=== PATIENT | female | born 1950 | race Caucasian/White ===

== ENCOUNTER 2016-10-06 02:07 | Emergency (ER) | payer MEDICARE, MEDICAID ==
[~2016-10-06] VITALS: Ht 154.9 cm; Wt 98.0 kg
[~2016-10-06 02:07] MED LIST: BUTA1CAP30 PO; CITA20TA5 PO; ESOM20CA PO; GABA600T2 PO; GEMF600T3 PO; INSU100I28 PO; LOSA50TA6 PO; MELO-184 PO; METO10TA6 PO; PRAV20TA2 PO; PROC10TA PO; ROPI0.5T2 PO; SITA1TAB5 PO; TOPI100T94 PO; VERA120T5 PO
[2016-10-06] MEDS ORDERED: DIPHENHYDRAMINE 50 MG/ML, 1ML ONE (02:48)
[2016-10-06] MEDS ORDERED: KETOROLAC 30 MG/1 ML ONE (02:49)
[2016-10-06] MEDS ORDERED: PROCHLORPERAZINE 5 MG/ML, 2ML ONE (02:49)
[2016-10-06] MEDS ORDERED: DIPHENHYDRAMINE 50 MG/ML, 1ML IVPush ONE (03:00)
[2016-10-06] MEDS ORDERED: PROCHLORPERAZINE 5 MG/ML, 2ML IVPush ONE (03:00)
[2016-10-06] MEDS ORDERED: KETOROLAC 30 MG/1 ML IVPush ONE (03:00)
[2016-10-06] MEDS ORDERED: SODIUM CHLORIDE 0.9% 1,000ML IVBOLUS ONE (03:00)
[2016-10-06] MEDS ORDERED: SODIUM CHLORIDE FLUSH 10ML SYR IVF ONE (03:00)
[2016-10-06 03:01] LABS: ASPARTATE AMINO TRANSFERASE 12 U/L (15-37); BLOOD UREA NITROGEN 17 mg/dL (7-18)
[2016-10-06] MEDS ORDERED: POTASSIUM CHLORIDE 20 MEQ TAB.ER.PRT ONE (04:20)
[2016-10-06] MEDS ORDERED: POTASSIUM CHLORIDE 20 MEQ TAB.ER.PRT PO ONE (04:30)
[2016-10-06 05:39] VITALS: BP 141/88
== END 2016-10-06 05:43 | disposition home or self-care (01) ==
LOC: ED 02:59
DX: G43.009 Migraine without aura, not intractable, without status migrainosus (principal); E87.6 Hypokalemia; E11.9 Type 2 diabetes mellitus without complications; I10 Essential (primary) hypertension; Z88.8 Allergy status to other drugs, medicaments and biological substances; Z88.1 Allergy status to other antibiotic agents; Z88.5 Allergy status to narcotic agent
CPT/HCPCS: 36415; 80053; 85025; 96361; 96374; 96375; 99284; J0780; J1200; J1885; J7030

== ENCOUNTER → 2017-02-15 | Outpatient (CLI) | payer MEDICARE, MEDICAID ==
[~2017-02-15] MED LIST changes: -MELO-184 PO; +MELO15TA24 PO; +TOPI100T8 PO; -TOPI100T94 PO
== END | disposition home or self-care (01) ==
LOC: CARD 08:15
PROVIDERS: ATTEND Registered Nurse
DX: R41.3 Other amnesia (principal)
CPT/HCPCS: 95819

== ENCOUNTER 2018-06-17 16:26 | Emergency (ER) | payer MEDICARE, MEDICAID ==
[~2018-06-17] VITALS: Ht 160 cm; Wt 98.0 kg
[~2018-06-17 16:26] MED LIST changes: -CITA20TA5 PO; +CITA20TA6 PO; -GABA600T2 PO; +GABA600T7 PO; -GEMF600T3 PO; +GEMF600T8 PO; +LOSA50TA14 PO; -LOSA50TA6 PO; -PROC10TA PO; +PROC10TA2 PO
[2018-06-17] MEDS ORDERED: SODIUM CHLORIDE 0.9% 1,000 ML IV ONE (16:45)
--- NOTE | 2018-06-17 16:45 | NUR ---
Assumed care of patient. C/O increased urinary frequency, ABD pain, malaise and generalized weakness. EKG done. Placed on NIBP, pulse ox and surveillance system monitor. Will continue to monitor.
[2018-06-17] MEDS ORDERED: SODIUM CHLORIDE FLUSH 10ML SYR IVF ONE (17:00)
[2018-06-17 17:18] LABS: BASOPHILS # (AUTO) 0.02 x10^3/uL (0-0.1); BASOPHILS % (AUTO) 0 % (0-1); EOSINOPHILS # (AUTO) 0.02 x10^3/uL (0-0.4); EOSINOPHILS % (AUTO) 0 % (1-7); LYMPHOCYTES # (AUTO) 1.47 x10^3/uL (1-3.4); LYMPHOCYTES % (AUTO) 14 % (22-44); MD NO; MEAN CORPUSCULAR HEMOGLOBIN 29.5 pg (27.0-34.8); MEAN CORPUSCULAR HGB CONC 32.8 g/dL (32.4-35.8); MEAN CORPUSCULAR VOLUME 89.8 fL (80-100); MEAN PLATELET VOLUME 9.3 fL (7.4-10.4); MONOCYTES # (AUTO) 0.53 x10^3/uL (0.2-0.8); MONOCYTES % (AUTO) 5 % (2-9); NEUTROPHILS # (AUTO) 8.44 x10^3/uL (1.8-6.8); NEUTROPHILS % (AUTO) 81 % (42-75); PLATELET COUNT 242 x10^3/uL (130-400); RED BLOOD COUNT 4.09 x10^6/uL (3.82-5.3); RED CELL DISTRIBUTION WIDTH 14.1 % (9.6-15.2)
[2018-06-17 17:22] LABS: INTERNATIONAL NORMALIZED RATIO 1.07 (0.93-1.1); PROTHROMBIN TIME 11.2 Seconds (9.6-11.5)
[2018-06-17 17:26] LABS: ALBUMIN 3.8 g/dL (3.4-5.0); ANION GAP 11 mmol/L (5-15); CALCIUM 8.8 mg/dL (8.5-10.1); CHLORIDE 108 mmol/L (98-107)
[2018-06-17 17:29] LABS: CREATININE 1.24 mg/dL (0.55-1.02)
[2018-06-17 17:30] LABS: ALANINE AMINOTRANSFERASE 19 U/L (12-78); ALKALINE PHOSPHATASE 94 U/L (45-117); BILIRUBIN,TOTAL 0.7 mg/dL (0.2-1.0); TOTAL PROTEIN 7.6 g/dL (6.4-8.2)
--- NOTE | 2018-06-17 17:30 | NUR ---
Patient voided via bedpan. Patient cleaned, linens changed, and repositioned for comfort.
[2018-06-17 17:32] LABS: MICROSCOPIC NOT IND
[2018-06-17 18:12] LABS: CULTURE INDICATED? NO
--- NOTE | 2018-06-17 18:22 | NUR ---
Patient to CT.
[2018-06-17] MEDS ORDERED: OMNIPAQUE 350 MG/ML, 100ML BOTTLE ONE (19:02)
[2018-06-17 20:01] VITALS: BP 133/62
--- NOTE | 2018-06-17 20:01 | NUR ---
VSS. Repositioned for comfort. No other needs.
--- NOTE | 2018-06-17 20:57 | NUR ---
Patient/Caregiver given discharge instructions and they have confirmed that they understand the instructions. Patient ambulatory with steady gait.
== END 2018-06-17 20:58 | disposition home or self-care (01) ==
LOC: ED 18:36
DX: R10.33 Periumbilical pain (principal); R00.1 Bradycardia, unspecified; I10 Essential (primary) hypertension; E11.9 Type 2 diabetes mellitus without complications
CPT/HCPCS: 36415; 74177; 80053; 81003; 83605; 83690; 85025; 85610; 87040; 93005; 99284; J7030; Q9967

== ENCOUNTER 2019-05-29 11:40 | Emergency (ER) | payer MEDICARE, MEDICAID ==
[~2019-05-29] VITALS: Ht 154.9 cm; Wt 78.9 kg
[~2019-05-29 11:40] MED LIST changes: +AMOX1TAB64 PO; +APIX5TAB PO; +DOXY100C2 PO; +FERR324T5 PO; +METR500T PO; -ROPI0.5T2 PO; +ROPI0.5T4 PO; +VERA120T13 PO; -VERA120T5 PO
[2019-05-29] MEDS ORDERED: SODIUM CHLORIDE 0.9% 1,000ML IVBOLUS ONE (12:00)
[2019-05-29] MEDS ORDERED: ONDANSETRON 2MG/ML, 2ML IVPush ONE (12:00)
[2019-05-29] MEDS ORDERED: PLEASE ENTER HEIGHT AND WEIGHT MC SCH (12:00)
[2019-05-29] MEDS ORDERED: FAMOTIDINE 20 MG/2 ML IV ONE (12:00)
[2019-05-29] MEDS ORDERED: SODIUM CHLORIDE FLUSH 10ML SYR IVF ONE (12:00)
[2019-05-29] MEDS ORDERED: ONDANSETRON 2MG/ML, 2ML ONE (12:07)
[2019-05-29] MEDS ORDERED: FAMOTIDINE 20 MG/2 ML ONE (12:08)
[2019-05-29 12:13] LABS: BASOPHILS # (AUTO) 0.02 x10^3/uL (0-0.1); BASOPHILS % (AUTO) 0 % (0-1); EOSINOPHILS # (AUTO) 0.26 x10^3/uL (0-0.4); EOSINOPHILS % (AUTO) 5 % (1-7); LYMPHOCYTES # (AUTO) 1.13 x10^3/uL (1-3.4); LYMPHOCYTES % (AUTO) 23 % (22-44); MD NO; MEAN CORPUSCULAR HEMOGLOBIN 28.6 pg (27.0-34.8); MEAN CORPUSCULAR VOLUME 89.4 fL (80-100); MEAN PLATELET VOLUME 8.9 fL (7.4-10.4); MONOCYTES # (AUTO) 0.34 x10^3/uL (0.2-0.8); MONOCYTES % (AUTO) 7 % (2-9); NEUTROPHILS % (AUTO) 65 % (42-75); PLATELET COUNT 163 x10^3/uL (130-400); RED BLOOD COUNT 3.61 x10^6/uL (3.82-5.3); RED CELL DISTRIBUTION WIDTH 16.3 % (9.6-15.2)
[2019-05-29 12:27] LABS: ALANINE AMINOTRANSFERASE 9 U/L (12-78); ALBUMIN 3.6 g/dL (3.4-5.0); ANION GAP 9 mmol/L (5-15); CALCIUM 9.3 mg/dL (8.5-10.1); CHLORIDE 110 mmol/L (98-107)
[2019-05-29 12:29] LABS: ALKALINE PHOSPHATASE 103 U/L (45-117); BILIRUBIN,TOTAL 0.3 mg/dL (0.2-1.0); TOTAL PROTEIN 7.7 g/dL (6.4-8.2)
--- NOTE | 2019-05-29 12:45 | NUR ---
PT BIB BY [facility]. SON CALLED 911 BECAUSE PT WAS SOB, NVD, AND COUGH FOR 2 WEEKS. 2 WEEKS AGO PT WAS TREATED FOR PNEUMONIA. EKG HAS BEEN COMPLETED. FEMALE IS PERFORMING STRAIGHT CATH. BLANKET PROVIDED AND PT MEDICATED PER MAY.
[2019-05-29 13:23] LABS: MICROSCOPIC AUTO
[2019-05-29 13:26] LABS: CULTURE INDICATED? YES
--- NOTE | 2019-05-29 13:51 | NUR ---
PT RESTING IN [facility]. NAD. VSS. UP FOR RECHECK AT THIS TIME
--- NOTE | 2019-05-29 13:52 | NUR ---
PT IN CT AT THIS TIME
--- NOTE | 2019-05-29 14:38 | NUR ---
CT MUST WAIT UNTIL SCAN DONE FOR CODE NEURO PATIENT
--- NOTE | 2019-05-29 14:52 | NUR ---
CODE NEURO CANCELLED; CT NOW JUST WAITING FOR NEW IV
--- NOTE | 2019-05-29 15:04 | NUR ---
PT TO CT AT THIS TIME
[2019-05-29] MEDS ORDERED: OMNIPAQUE 350 MG/ML, 100ML BOTTLE ONE (15:16)
[2019-05-29 15:22] VITALS: BP 170/83
--- NOTE | 2019-05-29 15:22 | NUR ---
PT BACK FROM CT. NAD. VSS. NO NEEDS AT THIS TIME
--- NOTE | 2019-05-29 16:53 | NUR ---
PT CALLED BROTHER FOR RIDE HOME. PT NEEDS 4 LITERS 02 VIA [place] 02/10. PT SAID BROTHER WILL BE ABOUT 20 MINUTES. PT IS IN WHEELCHAIR IN LOBBY CONNECTED TO 02 TANK.
[2019-06-07] MEDS ORDERED: APIX5TAB PO (15:38)
[2019-06-07] MEDS ORDERED: GABA300C10 PO (15:38)
[2019-06-07] MEDS ORDERED: CITA20TA9 PO (15:38)
[2019-06-07] MEDS ORDERED: TOPI100T24 PO (15:38)
[2019-06-07] MEDS ORDERED: PANT40TA5 PO (15:38)
[2019-06-07] MEDS ORDERED: ROPI0.5T4 PO (15:38)
[2019-06-07] MEDS ORDERED: INSU100I13 SQ-INSULIN (15:38)
== END 2019-05-29 16:55 | disposition home or self-care (01) ==
LOC: ED 13:24
DX: R82.81 Pyuria (principal); R10.32 Left lower quadrant pain; R11.2 Nausea with vomiting, unspecified; R94.31 Abnormal electrocardiogram [ECG] [EKG]; I10 Essential (primary) hypertension; E11.9 Type 2 diabetes mellitus without complications
CPT/HCPCS: 36415; 74022; 74177; 80053; 81001; 83605; 85025; 87086; 93005; 96361; 96374; 96375; 99285; J2405; J3490; J7030; Q9967

== ENCOUNTER 2019-07-01 15:21 | Emergency (ER) | payer MEDICARE, MEDICAID ==
[~2019-07-01] VITALS: Ht 154.9 cm; Wt 85.5 kg
[~2019-07-01 15:21] MED LIST changes: +CITA20TA9 PO; +GABA300C10 PO; +INSU100I13 SQ-INSULIN; +PANT40TA5 PO; +TOPI100T24 PO
--- NOTE | 2019-07-01 15:22 | NUR ---
PT TO ROOM 35 PER [facility]. PT IS A/O X4, BUT DUE TO THE MIGRAINE, PT DOES NOT OPEN EYES. PT STATES "THE MIGRAINE STARTED ABOUT 2 WEEKS AGO, AND JUST THE MIGRAINE WAS ENDING, BOOM I STARTED HAVING CHILLS AND SWEATS. ABOUT 1/2 WEEK LATER, I STARTED WITH THIS MASSIVE DIARRHEA. I'M WORRIED BECAUSE IT LOOKED ORANGE. " PT DENIES SOB OR COUGH. PT STATES "I HAVE COPD AND WEAR OXYGEN OF 4L NC ALL THE TIME. I MAY BE CRAZY, BUT NOT SUICIDAL." PT DENIES ETOH AND STREET DRUGS WELL. PT UNDRESSED AND PUT INTO PATIENT GOWN. DUE TO LOW GRADE TEMP, RN COVERS PATIENT WITH A SHEET, BUT DENIES THE REQUEST FOR A WARM BLANKET. PT HOOKED UP TO THE MONITOR AND CALL LIGHT GIVEN WITH INSTRUCTIONS ON HOW TO USE IT.
--- NOTE | 2019-07-01 16:03 | NUR ---
LAB AT BEDSIDE TO DRAW BLOOD. RN HAVING DIFFICULTY GETTING A BLOOD PRESSURE FROM LEFT ARM. CUFF READJUSTED WITHOUT RESULT, SO CUFF MOVED TO RIGHT ARM. AFTER 3 TRIES, PATIENT BLOOD PRESSURE IS VERY HIGH 165/110. PT IS LYING ON LEFT SIDE, SHE STATES THIS IS COMFORTABLE. PT REMAINS STABLE. RN EXPLAINED THE PROCESS OF THE COVID UNIT AND PT VERBALZES UNDERSTANDING OF ALL INSTRUCTIONS.
[2019-07-01 16:05] LABS: BASOPHILS # (AUTO) 0.06 x10^3/uL (0-0.1); BASOPHILS % (AUTO) 1 % (0-1); EOSINOPHILS # (AUTO) 0.16 x10^3/uL (0-0.4); EOSINOPHILS % (AUTO) 3 % (1-7); LYMPHOCYTES # (AUTO) 1.25 x10^3/uL (1-3.4); LYMPHOCYTES % (AUTO) 21 % (22-44); MD NO; MEAN CORPUSCULAR HEMOGLOBIN 28.5 pg (27.0-34.8); MEAN CORPUSCULAR HGB CONC 32.6 g/dL (32.4-35.8); MEAN CORPUSCULAR VOLUME 87.3 fL (80-100); MEAN PLATELET VOLUME 8.9 fL (7.4-10.4); MONOCYTES % (AUTO) 7 % (2-9); NEUTROPHILS # (AUTO) 4.03 x10^3/uL (1.8-6.8); NEUTROPHILS % (AUTO) 68 % (42-75); PLATELET COUNT 163 x10^3/uL (130-400)
[2019-07-01 16:12] LABS: ALANINE AMINOTRANSFERASE 10 U/L (12-78); ALBUMIN 3.5 g/dL (3.4-5.0); ANION GAP 8 mmol/L (5-15); CALCIUM 9.4 mg/dL (8.5-10.1); CHLORIDE 107 mmol/L (98-107); CREATININE 0.93 mg/dL (0.55-1.02)
[2019-07-01 16:14] LABS: ALKALINE PHOSPHATASE 84 U/L (45-117); BILIRUBIN,TOTAL 0.3 mg/dL (0.2-1.0); TOTAL PROTEIN 7.4 g/dL (6.4-8.2)
--- NOTE | 2019-07-01 16:48 | NUR ---
PT UP TO BSC. PT ABLE TO COLLECT URINE, BUT NO STOOL AT THIS TIME. PT GETS UP VERY EASY. PT WIDE AWAKE, STILL C/O [place]. URINE COLLECTED AND SENT TO LAB. PT BACK TO BED, CALL LIGHT AND PHONE IN REACH. PT AGAIN ASKED FOR A HEATED BLANKET, AND AFTER TEMP TAKEN WITH RESULT OF 99.2, RN OFFERED TO GIVE PATIENT ANOTHER SHEET OR A COOL BLANKET. PT OPTED FOR AN ADDITIONAL SHEET. PT NOW LYING ON LEFT SIDE.
[2019-07-01 18:12] VITALS: BP 145/78
--- NOTE | 2019-07-01 18:14 | NUR ---
DISCHARGE INSTRUCTIONS GIVEN TO PATIENT. PT VERBALZES UNDERSTANDING OF ALL INSTRUCTIONS AND FOLLOW UP. PT EDUATED ON PRESCRIPTION MEDICATIONS GIVEN. PT AMBULATED OUT OF ED PER PEDIS WITH STRONG STEADY GAIT.
[2019-07-01 18:17] LABS: CULTURE INDICATED? YES; MICROSCOPIC INDICATED
== END 2019-07-01 18:15 | disposition home or self-care (01) ==
LOC: ED 16:01
DX: K52.9 Noninfective gastroenteritis and colitis, unspecified (principal); R10.9 Unspecified abdominal pain; I10 Essential (primary) hypertension; R50.9 Fever, unspecified; R11.0 Nausea; E11.9 Type 2 diabetes mellitus without complications; G43.909 Migraine, unspecified, not intractable, without status migrainosus
CPT/HCPCS: 36415; 80053; 81001; 83690; 85025; 87086; 99283

== ENCOUNTER 2019-07-02 16:22 | Emergency (ER) | payer MEDICARE, MEDICAID ==
[~2019-07-02] VITALS: Ht 154.9 cm; Wt 90.0 kg
--- NOTE | 2019-07-02 16:35 | NUR ---
PT PLACED ON HEART MONITOR, BP CUFF, PULSE OX. CALL LIGHT WITHIN REACH. AWAITING ERP TO SEE.
[2019-07-02] MEDS ORDERED: SODIUM CHLORIDE 0.9% 1,000ML IVBOLUS ONE (17:30)
[2019-07-02] MEDS ORDERED: SODIUM CHLORIDE FLUSH 10ML SYR IVF ONE (17:30)
[2019-07-02 17:31] LABS: BASOPHILS # (AUTO) 0.07 x10^3/uL (0-0.1); BASOPHILS % (AUTO) 1 % (0-1); EOSINOPHILS # (AUTO) 0.13 x10^3/uL (0-0.4); EOSINOPHILS % (AUTO) 2 % (1-7); LYMPHOCYTES # (AUTO) 1.62 x10^3/uL (1-3.4); LYMPHOCYTES % (AUTO) 24 % (22-44); MD NO; MEAN CORPUSCULAR HEMOGLOBIN 28.7 pg (27.0-34.8); MEAN CORPUSCULAR HGB CONC 32.4 g/dL (32.4-35.8); MEAN CORPUSCULAR VOLUME 88.6 fL (80-100); MEAN PLATELET VOLUME 8.7 fL (7.4-10.4); MONOCYTES # (AUTO) 0.47 x10^3/uL (0.2-0.8); MONOCYTES % (AUTO) 7 % (2-9); NEUTROPHILS # (AUTO) 4.55 x10^3/uL (1.8-6.8); NEUTROPHILS % (AUTO) 66 % (42-75); PLATELET COUNT 172 x10^3/uL (130-400); RED BLOOD COUNT 3.93 x10^6/uL (3.82-5.3); RED CELL DISTRIBUTION WIDTH 15.5 % (9.6-15.2)
--- NOTE | 2019-07-02 17:39 | NUR ---
ATTEMPT TO ESTABLISH IV X 2, BOTH ATTEMPTS VEIN COLLAPSED. LABS DRAWN BY WIND FIELD MANAGER. WILL REQUEST US GUIDED IV. CALL LIGHT WITHIN REACH.
[2019-07-02 17:42] LABS: ALANINE AMINOTRANSFERASE 11 U/L (12-78); ALBUMIN 3.5 g/dL (3.4-5.0); ANION GAP 8 mmol/L (5-15); CHLORIDE 106 mmol/L (98-107)
[2019-07-02 17:44] LABS: ALKALINE PHOSPHATASE 79 U/L (45-117); BILIRUBIN,TOTAL 0.4 mg/dL (0.2-1.0); TOTAL PROTEIN 7.6 g/dL (6.4-8.2)
--- NOTE | 2019-07-02 17:58 | NUR ---
PIV START/US GUIDED. NS BOLUS INFUSING. CALL LIGHT WITHIN REACH, PT SLEEPING INTERMITTENTLY, NAD.
--- NOTE | 2019-07-02 18:10 | NUR ---
REPORT RECEIVED FROM KIP SEVILLA.
--- NOTE | 2019-07-02 18:15 | NUR ---
BS REPORT TO MICHAEL, TRANSFER OF CARE AT THIS TIME.
[2019-07-02] MEDS ORDERED: OMNIPAQUE 350 MG/ML, 100ML BOTTLE ONE (18:28)
--- NOTE | 2019-07-02 18:51 | NUR ---
PT TRANSFERED TO [facility] W/ A STANDBY ASSIST.
--- NOTE | 2019-07-02 19:05 | NUR ---
PT UNABLE TO PROVIDE STOOL SAMPLE.
[2019-07-02 20:38] VITALS: BP 147/39
[2019-07-02] MEDS ORDERED: PROMETHAZINE 25 MG/ML, 1ML IM ONE (21:00)
--- NOTE | 2019-07-02 21:05 | NUR ---
PT WHEELED TO DC DESK W/ OXYGEN. PT WANTS TO WAIT IN LOBBY FOR BROTHER TO PICK HER UP W/ HER O2.
== END 2019-07-02 21:11 | disposition home or self-care (01) ==
LOC: ED 17:39
DX: R19.7 Diarrhea, unspecified (principal); R10.84 Generalized abdominal pain; R11.0 Nausea; I10 Essential (primary) hypertension; E11.9 Type 2 diabetes mellitus without complications; G43.909 Migraine, unspecified, not intractable, without status migrainosus
CPT/HCPCS: 36415; 74177; 80053; 83690; 85025; 96360; 99285; J7030; Q9967

== ENCOUNTER 2019-07-03 12:42 | Emergency (ER) | payer MEDICARE, MEDICAID ==
[~2019-07-03] VITALS: Ht 160 cm; Wt 72.0 kg
[2019-07-03] MEDS ORDERED: ACETAMINOPHEN 500 MG TABLET ONE (13:55)
[2019-07-03] MEDS ORDERED: ONDANSETRON 2MG/ML, 2ML ONE (13:55)
[2019-07-03] MEDS ORDERED: KETOROLAC 30 MG/1 ML ONE ×2 (13:55→13:56)
[2019-07-03] MEDS ORDERED: LOPERAMIDE 2 MG CAPSULE ONE ×2 (13:57→13:59)
[2019-07-03] MEDS ORDERED: MAALOX/HYOSCYAMINE/LIDOCAINE 45 ML BTL ONE (13:58)
[2019-07-03] MEDS ORDERED: SODIUM CHLORIDE FLUSH 10ML SYR IVF ONE (14:00)
[2019-07-03] MEDS ORDERED: ACETAMINOPHEN 500 MG TABLET PO ONE (14:00)
[2019-07-03] MEDS ORDERED: KETOROLAC 30 MG/1 ML IVPush ONE (14:00)
[2019-07-03] MEDS ORDERED: SODIUM CHLORIDE 0.9% 1,000ML IVBOLUS ONE (14:00)
[2019-07-03] MEDS ORDERED: ONDANSETRON 2MG/ML, 2ML IVPush ONE (14:00)
[2019-07-03] MEDS ORDERED: MAALOX/HYOSCYAMINE/LIDOCAINE 45 ML BTL PO ONE (14:00)
[2019-07-03] MEDS ORDERED: LOPERAMIDE 2 MG CAPSULE PO ONE (14:00)
[2019-07-03 14:05] VITALS: BP 141/48
--- NOTE | 2019-07-03 14:06 | NUR ---
REPORT FROM MAXWELL SEVILLA. IVF/MEDS PER MAY. [facility]. CALL TEE.
[2019-07-03 14:07] LABS: BASOPHILS # (AUTO) 0.02 x10^3/uL (0-0.1); BASOPHILS % (AUTO) 0 % (0-1); EOSINOPHILS % (AUTO) 2 % (1-7); LYMPHOCYTES # (AUTO) 0.96 x10^3/uL (1-3.4); LYMPHOCYTES % (AUTO) 17 % (22-44); MD NO; MEAN CORPUSCULAR HEMOGLOBIN 28.5 pg (27.0-34.8); MEAN CORPUSCULAR HGB CONC 32.6 g/dL (32.4-35.8); MEAN CORPUSCULAR VOLUME 87.5 fL (80-100); MEAN PLATELET VOLUME 9.1 fL (7.4-10.4); MONOCYTES # (AUTO) 0.23 x10^3/uL (0.2-0.8); MONOCYTES % (AUTO) 4 % (2-9); NEUTROPHILS # (AUTO) 4.22 x10^3/uL (1.8-6.8); NEUTROPHILS % (AUTO) 76 % (42-75); PLATELET COUNT 150 x10^3/uL (130-400); RED BLOOD COUNT 3.75 x10^6/uL (3.82-5.3); RED CELL DISTRIBUTION WIDTH 15.5 % (9.6-15.2)
[2019-07-03 14:16] LABS: ALBUMIN 3.4 g/dL (3.4-5.0); CALCIUM 8.9 mg/dL (8.5-10.1); CHLORIDE 108 mmol/L (98-107)
[2019-07-03 14:21] LABS: ANION GAP 10 mmol/L (5-15); CREATININE 0.88 mg/dL (0.55-1.02)
[2019-07-03 14:22] LABS: ALANINE AMINOTRANSFERASE 13 U/L (12-78); ALKALINE PHOSPHATASE 82 U/L (45-117); BILIRUBIN,TOTAL 0.4 mg/dL (0.2-1.0)
--- NOTE | 2019-07-03 14:50 | NUR ---
called brother Tad for ride ([phone]). sts will come to get pt. pt had swallowed all pills, GI cocktail, and water w/ no issue. when told she is getting dc home pt gags and sts she wants to stay. pt given water. no vomiting. as
--- NOTE | 2019-07-03 15:10 | NUR ---
oob to bathroom gait steady. awaiting ride. helped to dress. piv removed. as
== END 2019-07-03 15:17 | disposition home or self-care (01) ==
LOC: ED 12:46
DX: K52.9 Noninfective gastroenteritis and colitis, unspecified (principal); R53.1 Weakness; R94.31 Abnormal electrocardiogram [ECG] [EKG]; E11.9 Type 2 diabetes mellitus without complications; G89.29 Other chronic pain; G43.909 Migraine, unspecified, not intractable, without status migrainosus; I10 Essential (primary) hypertension
CPT/HCPCS: 36415; 80053; 85025; 93005; 96361; 96374; 96375; 99284; J1885; J2405; J7030

== ENCOUNTER 2019-07-13 23:40 | Emergency (ER) | payer MEDICAID, MEDICARE ==
[~2019-07-13] VITALS: Ht 154.9 cm; Wt 170.0 kg
[2019-07-14 00:27] LABS: BASOPHILS # (AUTO) 0.02 x10^3/uL (0-0.1); BASOPHILS % (AUTO) 0 % (0-1); EOSINOPHILS # (AUTO) 0.22 x10^3/uL (0-0.4); EOSINOPHILS % (AUTO) 4 % (1-7); LYMPHOCYTES # (AUTO) 1.16 x10^3/uL (1-3.4); LYMPHOCYTES % (AUTO) 24 % (22-44); MD NO; MEAN CORPUSCULAR HEMOGLOBIN 28.5 pg (27.0-34.8); MEAN CORPUSCULAR HGB CONC 32.5 g/dL (32.4-35.8); MEAN CORPUSCULAR VOLUME 87.5 fL (80-100); MEAN PLATELET VOLUME 9.6 fL (7.4-10.4); MONOCYTES # (AUTO) 0.58 x10^3/uL (0.2-0.8); MONOCYTES % (AUTO) 12 % (2-9); NEUTROPHILS # (AUTO) 2.95 x10^3/uL (1.8-6.8); NEUTROPHILS % (AUTO) 60 % (42-75); PLATELET COUNT 135 x10^3/uL (130-400); RED BLOOD COUNT 3.16 x10^6/uL (3.82-5.3); RED CELL DISTRIBUTION WIDTH 14.8 % (9.6-15.2)
[2019-07-14 00:34] LABS: ANION GAP 6 mmol/L (5-15); CHLORIDE 113 mmol/L (98-107)
[2019-07-14 00:40] LABS: ALANINE AMINOTRANSFERASE 9 U/L (12-78); ALKALINE PHOSPHATASE 84 U/L (45-117); BILIRUBIN,TOTAL 0.3 mg/dL (0.2-1.0); CREATININE 1.07 mg/dL (0.55-1.02); TOTAL PROTEIN 6.4 g/dL (6.4-8.2); TROPONIN I < 0.015 ng/mL (0.000-0.045)
[2019-07-14 01:15] VITALS: BP 139/66
--- NOTE | 2019-07-14 01:28 | NUR ---
ERP AT BEDSIDE FOR RE-EVAL. ASSISTED PT TO BS.
== END 2019-07-14 01:50 | disposition home or self-care (01) ==
LOC: ED 07-14 00:56
DX: R55 Syncope and collapse (principal); R42 Dizziness and giddiness; R00.2 Palpitations; R19.7 Diarrhea, unspecified; R07.9 Chest pain, unspecified; R94.31 Abnormal electrocardiogram [ECG] [EKG]; I10 Essential (primary) hypertension; E11.9 Type 2 diabetes mellitus without complications
CPT/HCPCS: 36415; 71045; 80053; 84484; 85025; 93005; 99285

== ENCOUNTER 2019-08-26 12:14 | Emergency (ER) | payer MEDICAID, MEDICARE ==
[~2019-08-26] VITALS: Ht 154.9 cm; Wt 85.0 kg
[~2019-08-26 12:14] MED LIST changes: +ATOR40TA78 PO; +DAPA1TAB3 PO; +DULA1.5P SC; +FURO20TA3 PO; +OMEP20CA20 PO; +ONDA4TAB13 PO; +OXYC-302 PO; +OXYC-432 PO; +TOPI200T6 PO
[2019-08-26 12:24] VITALS: BP 121/58
[2019-08-26] MEDS ORDERED: NEOSPORIN OINT. PKT 1 PACKET ONE (14:44)
== END 2019-08-26 14:55 | disposition home or self-care (01) ==
LOC: ED 13:56
DX: S80.12XA Contusion of left lower leg, initial encounter (principal); I10 Essential (primary) hypertension; E11.9 Type 2 diabetes mellitus without complications; I48.91 Unspecified atrial fibrillation; X58.XXXA Exposure to other specified factors, initial encounter; Y93.89 Activity, other specified; Y92.098 Other place in other non-institutional residence as the place of occurrence of the external cause; Y99.8 Other external cause status
CPT/HCPCS: 99283

== ENCOUNTER 2019-10-02 11:55 | Emergency (ER) | payer MEDICAID, MEDICARE ==
[~2019-10-02] VITALS: Ht 154.9 cm; Wt 90.0 kg
[2019-10-02 12:10] VITALS: BP_DIAS 64
[2019-10-02] MEDS ORDERED: SODIUM CHLORIDE FLUSH 10ML SYR IVF ONE (12:30)
[2019-10-02] MEDS ORDERED: ONDANSETRON 2MG/ML, 2ML IVPush ONE (12:30)
[2019-10-02] MEDS ORDERED: SODIUM CHLORIDE 0.9% 1,000ML IVBOLUS ONE (12:30)
[2019-10-02 12:48] LABS: BASOPHILS # (AUTO) 0.07 x10^3/uL (0-0.1); BASOPHILS % (AUTO) 1 % (0-1); EOSINOPHILS # (AUTO) 0.12 x10^3/uL (0-0.4); EOSINOPHILS % (AUTO) 2 % (1-7); LYMPHOCYTES # (AUTO) 1.69 x10^3/uL (1-3.4); LYMPHOCYTES % (AUTO) 21 % (22-44); MD NO; MEAN CORPUSCULAR HEMOGLOBIN 28.6 pg (27.0-34.8); MEAN CORPUSCULAR HGB CONC 32.4 g/dL (32.4-35.8); MEAN CORPUSCULAR VOLUME 88.2 fL (80-100); MEAN PLATELET VOLUME 8.2 fL (7.4-10.4); MONOCYTES # (AUTO) 0.39 x10^3/uL (0.2-0.8); MONOCYTES % (AUTO) 5 % (2-9); NEUTROPHILS # (AUTO) 5.66 x10^3/uL (1.8-6.8); NEUTROPHILS % (AUTO) 71 % (42-75); PLATELET COUNT 210 x10^3/uL (130-400)
[2019-10-02 13:00] LABS: ALANINE AMINOTRANSFERASE 13 U/L (12-78); ANION GAP 10 mmol/L (5-15); CALCIUM 9.8 mg/dL (8.5-10.1); CHLORIDE 108 mmol/L (98-107); CREATININE 1.24 mg/dL (0.55-1.02)
[2019-10-02] MEDS ORDERED: MAALOX/HYOSCYAMINE/LIDOCAINE 45 ML BTL PO ONE (13:00)
[2019-10-02 13:05] LABS: ALKALINE PHOSPHATASE 100 U/L (45-117); BILIRUBIN,TOTAL 0.5 mg/dL (0.2-1.0); TOTAL PROTEIN 8.4 g/dL (6.4-8.2); TROPONIN I < 0.015 ng/mL (0.000-0.045)
[2019-10-02] MEDS ORDERED: MAALOX/HYOSCYAMINE/LIDOCAINE 45 ML BTL ONE (13:18)
[2019-10-02] MEDS ORDERED: ONDANSETRON 2MG/ML, 2ML ONE (13:18)
[2019-10-02 13:20] VITALS: BP_SYST 133
--- NOTE | 2019-10-02 13:51 | NUR ---
REPORT FROM ROEL CURIEL. PT CARE RESPONSIBILTIES ASSUMED.
[2019-10-02 14:31] LABS: MICROSCOPIC NOT IND
== END 2019-10-02 16:00 | disposition home or self-care (01) ==
LOC: ED 14:04
DX: R10.84 Generalized abdominal pain (principal); R10.13 Epigastric pain; R11.2 Nausea with vomiting, unspecified; R19.7 Diarrhea, unspecified; E11.9 Type 2 diabetes mellitus without complications; I48.91 Unspecified atrial fibrillation; G43.909 Migraine, unspecified, not intractable, without status migrainosus; I10 Essential (primary) hypertension
CPT/HCPCS: 36415; 74021; 80053; 81003; 83690; 84484; 85025; 93005; 96361; 96374; 99285; J2405; J7030

== ENCOUNTER 2019-10-15 11:11 | Emergency (ER) | payer MEDICARE ==
[~2019-10-15] VITALS: Ht 154.9 cm; Wt 103.0 kg
--- NOTE | 2019-10-15 11:20 | NUR ---
BIB [facility], PT REPORTS CHOKING ON SUSHI AT HOME, SHE FEELS THOUGH THERE IS STILL A PIECE IN HER [place], PT WITH NO RESP DISTRESS NOTED, NO STRIDOR, SATING 100% ON BASELINE 4L. PT TO CONT PULSE OX, BP MONITORING, CALL LIGHT IN REACH. PT INSTRUCTED TO CALL IF CHANGES IN WORK OF BREATHING. AWAITING ALECIA MARTIN
--- NOTE | 2019-10-15 11:54 | NUR ---
PT TO IMAGING AT THIS TIME
[2019-10-15 12:33] VITALS: BP 106/47
--- NOTE | 2019-10-15 12:50 | NUR ---
PT CALLED SON FOR RIDE HOME
== END 2019-10-15 13:09 | disposition home or self-care (01) ==
LOC: ED 12:50
DX: R13.14 Dysphagia, pharyngoesophageal phase (principal); E11.9 Type 2 diabetes mellitus without complications; I48.91 Unspecified atrial fibrillation; I10 Essential (primary) hypertension; G43.909 Migraine, unspecified, not intractable, without status migrainosus
CPT/HCPCS: 74220; 99283

== ENCOUNTER 2019-11-07 21:35 | Inpatient (IN) | payer MEDICARE, MEDICAID ==
[~2019-11-07] VITALS: Ht 154.9 cm; Wt 76.9 kg
--- NOTE | 2019-11-07 22:45 | NUR ---
JUANA [place]: [phone]
--- NOTE | 2019-11-07 22:45 | NUR ---
THIS IS A 68 YO FEMALE BIB [facility] FROM HOME WITH COMPLAINTS OF BODY ACHES AND ONSET OF N/V LAST NIGHT, BS 88 EN ROUTE, ON O2 4L AT BASELINE. PER PATIENT SYMPTOMS BECAME MUCH WORSE THIS EVENING WHILE WALKING FROM "[place]", BECAME DIZZY AND FELT LIKE SHE WAS GOING TO PASS OUT. PT DENIES CHEST PAIN, DENIES SOB BUT PATIENT IS TACHYPNIC AT 26 BREATHS A MINUTE WITH AUDIBLE BREATH SOUNDS. LUNG SOUNDS ARE DIMINISHED THROUGHOUT. C/O BURNING PAIN IN EPIGASTRIC AREA. ALL MONITORING IN PLACE, PATIENT IS BRADYCARDIC WITH ARRYTHMIA, ALL OTHER VSS, CALL LIGHT IN REACH
[2019-11-07] MEDS ORDERED: methylPREDNISolone SOD SUCC 125 MG/2 ML ONE (23:28)
[2019-11-07] MEDS ORDERED: SODIUM CHLORIDE FLUSH 10ML SYR IVF ONE (23:30)
[2019-11-07] MEDS ORDERED: methylPREDNISolone SOD SUCC 125 MG/2 ML IV ONE (23:30)
[2019-11-08] VITALS (8 sets, daily range): BP systolic 112–151; BP diastolic 60–83
--- NOTE | 2019-11-08 | NUR ---
PIV PLACED, MEDICATED PER EMAR.
[2019-11-08 00:19] LABS: BASOPHILS # (AUTO) 0.03 x10^3/uL (0-0.1); BASOPHILS % (AUTO) 0 % (0-1); EOSINOPHILS # (AUTO) 0.26 x10^3/uL (0-0.4); EOSINOPHILS % (AUTO) 4 % (1-7); LYMPHOCYTES # (AUTO) 2.01 x10^3/uL (1-3.4); LYMPHOCYTES % (AUTO) 28 % (22-44); MD NO; MEAN CORPUSCULAR HEMOGLOBIN 29.7 pg (27.0-34.8); MEAN CORPUSCULAR HGB CONC 32.6 g/dL (32.4-35.8); MEAN CORPUSCULAR VOLUME 91.2 fL (80-100); MEAN PLATELET VOLUME 8.8 fL (7.4-10.4); MONOCYTES # (AUTO) 0.56 x10^3/uL (0.2-0.8); MONOCYTES % (AUTO) 8 % (2-9); NEUTROPHILS # (AUTO) 4.24 x10^3/uL (1.8-6.8); NEUTROPHILS % (AUTO) 60 % (42-75); PLATELET COUNT 229 x10^3/uL (130-400); RED BLOOD COUNT 3.65 x10^6/uL (3.82-5.3); RED CELL DISTRIBUTION WIDTH 16.1 % (9.6-15.2)
[2019-11-08 00:24] LABS: ALBUMIN 3.4 g/dL (3.4-5.0); ANION GAP 3 mmol/L (5-15); CALCIUM 9.8 mg/dL (8.5-10.1); CHLORIDE 109 mmol/L (98-107)
[2019-11-08 00:29] LABS: ALANINE AMINOTRANSFERASE 19 U/L (12-78); ALKALINE PHOSPHATASE 96 U/L (45-117); BILIRUBIN,TOTAL 0.4 mg/dL (0.2-1.0); CREATININE 1.12 mg/dL (0.55-1.02); TOTAL PROTEIN 7.4 g/dL (6.4-8.2); TROPONIN I < 0.015 ng/mL (0.000-0.045)
[2019-11-08] MEDS ORDERED: CEFTRIAXONE PMX 1GM/50ML 50 ML IVPB ONE (01:00)
[2019-11-08] MEDS ORDERED: CEFTRIAXONE PMX 1GM/50ML 50 ML ONE (01:03)
--- NOTE | 2019-11-08 01:11 | NUR ---
BLOOD CULTURES X2 DRAWN PRIOR TO ABX ADMIN
[2019-11-08] MEDS ORDERED: SODIUM CHLORIDE FLUSH 10ML SYR IVF PRN (01:30)
--- NOTE | 2019-11-08 02:56 | NUR ---
REPORT GIVEN TO ROEL CARDOZO. PLAN OF CARE DISCUSSED
--- NOTE | 2019-11-08 03:41 | NUR ---
report called to kathleen to assume care upon transfer to [facility]
[2019-11-08] MEDS ORDERED: hydrALAzine 20 MG/ML, 1ML IVPush PRN (04:00)
[2019-11-08] MEDS ORDERED: CEFTRIAXONE PMX 1GM/50ML 50 ML IV SCH (04:00)
--- NOTE | 2019-11-08 04:15 | NUR ---
COVID SWAB COLLECTED AND WALKED TO LAB
[2019-11-08] MEDS ORDERED: ALBUTEROL HFA 90 MCG/SPRAY INH PRN (04:30)
[2019-11-08] MEDS: ACETAMINOPHEN 325 MG TABLET PO PRN ×5 (05:04→23:16)
[2019-11-08] MEDS: methylPREDNISolone SOD SUCC 125 MG/2 ML IVPush SCH ×2 (05:04→11:42)
[2019-11-08] MEDS: PANTOPRAZOLE 40MG TABLET PO SCH (05:04)
[2019-11-08] MEDS ORDERED: GLUCAGON 1 MG IM PRN (06:30)
[2019-11-08] MEDS ORDERED: DEXTROSE 50%, 50ML SYRINGE IVPush PRN (06:30)
[2019-11-08] MEDS ORDERED: DEXTROSE 4 GM TAB.CHEW PO PRN (06:30)
[2019-11-08] MEDS: APIXABAN 5 MG TABLET PO SCH ×2 (09:06→20:59)
[2019-11-08] MEDS: OMEPRAZOLE 20 MG CAPSULE.DR PO SCH (09:06)
[2019-11-08] MEDS: CITALOPRAM 20 MG TABLET PO SCH ×2 (09:06→20:59)
[2019-11-08] MEDS: DOXYCYCLINE 100MG TABLET PO SCH ×2 (09:06→20:59)
[2019-11-08] MEDS: ONDANSETRON 2MG/ML, 2ML IVPush PRN ×2 (09:07→16:26)
[2019-11-08] MEDS: FUROSEMIDE 20 MG TABLET PO SCH ×2 (09:07→20:59)
[2019-11-08] MEDS: SODIUM CHLORIDE FLUSH 10ML SYR IVF SCH ×2 (09:07→21:00)
[2019-11-08] MEDS: LOSARTAN 50MG TABLET PO SCH (09:07)
[2019-11-08] MEDS ORDERED: TEMPLATE NON-FORMULARY MED. (Dulaglutide (Trulicity) 1.5 MG) SC SCH (12:30)
[2019-11-08] MEDS ORDERED: FERROUS GLUCONATE 324 MG TABLET PO SCH (12:30)
[2019-11-08] MEDS: INSULIN LISPRO 100 UNITS/ML, PEN SQ-INSULIN SCH ×3 (13:12→20:58)
[2019-11-08] MEDS: GABAPENTIN 300 MG CAPSULE PO SCH ×2 (16:28→20:59)
[2019-11-08] MEDS: ROPINIROLE 0.5MG TABLET PO SCH ×2 (16:28→20:59)
[2019-11-08] MEDS: INSULIN GLARGINE 100 UNITS/ML, PEN SQ-INSULIN SCH (20:59)
[2019-11-08] MEDS: ATORVASTATIN 40 MG TABLET PO SCH (20:59)
[2019-11-08] MEDS: TOPIRAMATE 100 MG TABLET PO SCH (20:59)
[2019-11-09 00:48] VITALS: BP 120/66
[2019-11-09] MEDS: ACETAMINOPHEN 325 MG TABLET PO PRN ×3 (05:22→20:21)
[2019-11-09] MEDS: PANTOPRAZOLE 40MG TABLET PO SCH (05:22)
[2019-11-09 06:31] VITALS: BP 114/57
[2019-11-09] MEDS: INSULIN LISPRO 100 UNITS/ML, PEN SQ-INSULIN SCH ×4 (07:00→20:43)
[2019-11-09 07:19] LABS: ANION GAP 5 mmol/L (5-15); CALCIUM 8.6 mg/dL (8.5-10.1); CHLORIDE 111 mmol/L (98-107); CREATININE 1.25 mg/dL (0.55-1.02)
[2019-11-09 08:02] LABS: BASOPHILS # (AUTO) 0.02 x10^3/uL (0-0.1); BASOPHILS % (AUTO) 0 % (0-1); EOSINOPHILS % (AUTO) 0 % (1-7); LYMPHOCYTES # (AUTO) 1.61 x10^3/uL (1-3.4); LYMPHOCYTES % (AUTO) 14 % (22-44); MD NO; MEAN CORPUSCULAR HEMOGLOBIN 29.6 pg (27.0-34.8); MEAN CORPUSCULAR HGB CONC 32.5 g/dL (32.4-35.8); MEAN CORPUSCULAR VOLUME 91.1 fL (80-100); MEAN PLATELET VOLUME 8.9 fL (7.4-10.4); MONOCYTES # (AUTO) 0.67 x10^3/uL (0.2-0.8); MONOCYTES % (AUTO) 6 % (2-9); NEUTROPHILS # (AUTO) 9.33 x10^3/uL (1.8-6.8); NEUTROPHILS % (AUTO) 80 % (42-75); PLATELET COUNT 220 x10^3/uL (130-400); RED BLOOD COUNT 3.53 x10^6/uL (3.82-5.3); RED CELL DISTRIBUTION WIDTH 16.2 % (9.6-15.2)
[2019-11-09] MEDS: TOPIRAMATE 100 MG TABLET PO SCH ×2 (08:12→20:41)
[2019-11-09] MEDS: metFORMIN XR 500 MG TAB.ER.24H PO SCH (08:13)
[2019-11-09] MEDS: OMEPRAZOLE 20 MG CAPSULE.DR PO SCH (08:13)
[2019-11-09] MEDS: APIXABAN 5 MG TABLET PO SCH ×2 (08:14→20:42)
[2019-11-09] MEDS: LOSARTAN 50MG TABLET PO SCH (08:14)
[2019-11-09] MEDS: GABAPENTIN 300 MG CAPSULE PO SCH ×3 (08:14→20:42)
[2019-11-09] MEDS: ROPINIROLE 0.5MG TABLET PO SCH ×3 (08:14→20:41)
[2019-11-09] MEDS: FUROSEMIDE 20 MG TABLET PO SCH ×2 (08:14→20:41)
[2019-11-09] MEDS: DOXYCYCLINE 100MG TABLET PO SCH ×2 (08:14→20:41)
[2019-11-09] MEDS: CITALOPRAM 20 MG TABLET PO SCH ×2 (08:14→20:42)
[2019-11-09] MEDS: SODIUM CHLORIDE FLUSH 10ML SYR IVF SCH ×2 (08:16→20:44)
[2019-11-09] MEDS: FERROUS GLUCONATE 324 MG TABLET PO SCH (11:27)
[2019-11-09 12:12] VITALS: BP_SYST 107; BP_SYST 119; BP_DIAS 48; BP_DIAS 61
[2019-11-09 12:13] VITALS: BP 100/60
[2019-11-09] MEDS ORDERED: PIPERACILLIN/TAZO/PMX 4.5GM 100 ML IV SCH (13:00)
[2019-11-09 17:09] VITALS: BP 115/71
[2019-11-09 20:28] VITALS: BP 125/67
[2019-11-09] MEDS: ATORVASTATIN 40 MG TABLET PO SCH (20:41)
[2019-11-09] MEDS: INSULIN GLARGINE 100 UNITS/ML, PEN SQ-INSULIN SCH (20:43)
[2019-11-10 00:49] VITALS: BP 135/69
[2019-11-10] MEDS ORDERED: CEFTRIAXONE PMX 1GM/50ML 50 ML IV SCH (01:00)
[2019-11-10] MEDS: ACETAMINOPHEN 325 MG TABLET PO PRN ×3 (01:51→11:04)
[2019-11-10] MEDS: PANTOPRAZOLE 40MG TABLET PO SCH (05:49)
[2019-11-10 06:50] VITALS: BP 127/75
[2019-11-10] MEDS: INSULIN LISPRO 100 UNITS/ML, PEN SQ-INSULIN SCH ×2 (07:44→10:59)
[2019-11-10] MEDS: OMEPRAZOLE 20 MG CAPSULE.DR PO SCH (08:00)
[2019-11-10] MEDS: TOPIRAMATE 100 MG TABLET PO SCH (08:01)
[2019-11-10] MEDS: FUROSEMIDE 20 MG TABLET PO SCH (08:01)
[2019-11-10] MEDS: APIXABAN 5 MG TABLET PO SCH (08:01)
[2019-11-10] MEDS: metFORMIN XR 500 MG TAB.ER.24H PO SCH (08:01)
[2019-11-10] MEDS: DOXYCYCLINE 100MG TABLET PO SCH (08:02)
[2019-11-10] MEDS: CITALOPRAM 20 MG TABLET PO SCH (08:02)
[2019-11-10] MEDS: ROPINIROLE 0.5MG TABLET PO SCH (08:02)
[2019-11-10] MEDS: GABAPENTIN 300 MG CAPSULE PO SCH (08:02)
[2019-11-10] MEDS: SODIUM CHLORIDE FLUSH 10ML SYR IVF SCH (08:08)
[2019-11-10] MEDS: FERROUS GLUCONATE 324 MG TABLET PO SCH (11:03)
[2019-11-10] MEDS ORDERED: CEFD300C37 PO (11:58)
[2019-11-10] MEDS ORDERED: DOXY100T PO (11:58)
[2019-11-10 12:30] VITALS: BP 127/75
[2019-11-10] MEDS: ONDANSETRON 2MG/ML, 2ML IVPush PRN (12:45)
== END 2019-11-10 14:29 | disposition home or self-care (01) | DRG 193 ==
LOC: ED 23:02 → EDIP 11-08 01:08 → 4EST 11-08 04:27 → 3N 11-09 17:00
PROVIDERS: ADMIT Family Medicine; ATTEND Hospitalist
DX: J15.9 Unspecified bacterial pneumonia (principal); G93.41 Metabolic encephalopathy; J96.11 Chronic respiratory failure with hypoxia; D68.69 Other thrombophilia; J44.0 Chronic obstructive pulmonary disease with (acute) lower respiratory infection; J44.1 Chronic obstructive pulmonary disease with (acute) exacerbation; E11.22 Type 2 diabetes mellitus with diabetic chronic kidney disease; G25.81 Restless legs syndrome; F20.9 Schizophrenia, unspecified; E78.5 Hyperlipidemia, unspecified; I12.9 Hypertensive chronic kidney disease with stage 1 through stage 4 chronic kidney disease, or unspecified chronic kidney disease; I25.10 Atherosclerotic heart disease of native coronary artery without angina pectoris; I48.0 Paroxysmal atrial fibrillation; N18.3 Chronic kidney disease, stage 3 (moderate); Z20.828 Contact with and (suspected) exposure to other viral communicable diseases; Z79.01 Long term (current) use of anticoagulants; Z79.4 Long term (current) use of insulin; Z79.899 Other long term (current) drug therapy; Z87.891 Personal history of nicotine dependence; Z99.81 Dependence on supplemental oxygen; G43.909 Migraine, unspecified, not intractable, without status migrainosus; R00.1 Bradycardia, unspecified; R55 Syncope and collapse; Z88.5 Allergy status to narcotic agent; Z88.1 Allergy status to other antibiotic agents
CPT/HCPCS: 36415; 71045; 80048; 80053; 82962; 83605; 83880; 84145; 84443; 84484; 85025; 87040; 87635; 93005; G0378; J0696; J2405; J1815; J2930

== ENCOUNTER → 2019-12-29 | Outpatient (CLI) | payer MEDICARE, MEDICAID ==
[~2019-12-29] MED LIST changes: +CEFD300C37 PO; +DOXY100T PO; +OMNIPAQUE 350 MG/ML, 100ML BOTTLE ONE; -OXYC-432 PO; +OXYC1TAB18 PO; -PANT40TA5 PO; +PANT40TA6 PO
== END | disposition home or self-care (01) ==
LOC: CFH 12:42
PROVIDERS: ATTEND Family Medicine
DX: N20.0 Calculus of kidney (principal); E27.8 Other specified disorders of adrenal gland; R60.9 Edema, unspecified
CPT/HCPCS: 74177; Q9967

== ENCOUNTER 2020-01-02 17:33 | Emergency (ER) | payer MEDICARE, MEDICAID ==
[~2020-01-02] VITALS: Ht 154.9 cm; Wt 87.8 kg
[~2020-01-02 17:33] MED LIST changes: -OMNIPAQUE 350 MG/ML, 100ML BOTTLE ONE
[2020-01-02 19:36] LABS: BASOPHILS % (AUTO) 1 % (0-1); EOSINOPHILS % (AUTO) 8 % (1-7); LYMPHOCYTES % (AUTO) 15 % (22-44); MEAN CORPUSCULAR HEMOGLOBIN 29.2 pg (27.0-34.8); MEAN CORPUSCULAR HGB CONC 32.7 g/dL (32.4-35.8); MEAN PLATELET VOLUME 8.2 fL (7.4-10.4); MONOCYTES % (AUTO) 4 % (2-9); NEUTROPHILS % (AUTO) 72 % (42-75); PLATELET COUNT 306 x10^3/uL (130-400); RED CELL DISTRIBUTION WIDTH 14.7 % (9.6-15.2)
[2020-01-02 19:41] LABS: ALANINE AMINOTRANSFERASE 13 U/L (12-78); ALBUMIN 3.1 g/dL (3.4-5.0); ANION GAP 9 mmol/L (5-15); CALCIUM 8.7 mg/dL (8.5-10.1); CHLORIDE 107 mmol/L (98-107)
[2020-01-02 19:43] LABS: ALKALINE PHOSPHATASE 93 U/L (45-117); BILIRUBIN,TOTAL 0.2 mg/dL (0.2-1.0); TOTAL PROTEIN 7.5 g/dL (6.4-8.2)
[2020-01-02 19:49] LABS: MD SCAN
--- NOTE | 2020-01-02 20:36 | NUR ---
PT BROUGHT BACK TO [place] FOR FOR VITAL SIGNS.
--- NOTE | 2020-01-02 20:47 | NUR ---
law firm partner: Pt walked back from lobby to room at this time.
--- NOTE | 2020-01-02 21:10 | NUR ---
ERP TO ROOM FOR EVAL
[2020-01-02 21:46] VITALS: BP 118/67
--- NOTE | 2020-01-02 22:25 | NUR ---
Patient/Caregiver given discharge instructions and they have confirmed that they understand the instructions. Patient wheeled to discharge
== END 2020-01-02 22:27 | disposition home or self-care (01) ==
LOC: ED 20:53
DX: M25.561 Pain in right knee (principal); R60.0 Localized edema; I10 Essential (primary) hypertension; E11.9 Type 2 diabetes mellitus without complications; J44.9 Chronic obstructive pulmonary disease, unspecified; I48.91 Unspecified atrial fibrillation; G43.909 Migraine, unspecified, not intractable, without status migrainosus; Z87.891 Personal history of nicotine dependence
CPT/HCPCS: 36415; 80053; 85025; 99284

== ENCOUNTER 2020-01-10 08:22 | Emergency (ER) | payer MEDICARE, MEDICAID ==
[~2020-01-10] VITALS: Ht 165.1 cm; Wt 79.5 kg
--- NOTE | 2020-01-10 09:15 | NUR ---
PT UP TO BEDSIDE COMMODE. TOLERATES WELL. SHUFFLING GAIT
[2020-01-10 09:16] VITALS: BP 164/58
[2020-01-10] MEDS ORDERED: KETOROLAC 30 MG/1 ML IVPush ONE (09:30)
[2020-01-10] MEDS ORDERED: SODIUM CHLORIDE FLUSH 10ML SYR IVF ONE (09:30)
[2020-01-10 09:52] LABS: ALANINE AMINOTRANSFERASE 11 U/L (12-78); ALBUMIN 3.2 g/dL (3.4-5.0); ANION GAP 7 mmol/L (5-15); CALCIUM 8.8 mg/dL (8.5-10.1); CREATININE 0.94 mg/dL (0.55-1.02)
[2020-01-10 09:56] LABS: ALKALINE PHOSPHATASE 78 U/L (45-117); BILIRUBIN,TOTAL 0.3 mg/dL (0.2-1.0); TOTAL PROTEIN 7.3 g/dL (6.4-8.2); TROPONIN I < 0.015 ng/mL (0.000-0.045)
[2020-01-10] MEDS ORDERED: KETOROLAC 30 MG/1 ML ONE (09:57)
[2020-01-10 10:03] LABS: BASOPHILS % (AUTO) 1 % (0-1); EOSINOPHILS % (AUTO) 3 % (1-7); LYMPHOCYTES % (AUTO) 19 % (22-44); MD NO; MEAN CORPUSCULAR HEMOGLOBIN 29.1 pg (27.0-34.8); MEAN CORPUSCULAR HGB CONC 32.6 g/dL (32.4-35.8); MEAN PLATELET VOLUME 7.6 fL (7.4-10.4); MONOCYTES % (AUTO) 8 % (2-9); NEUTROPHILS % (AUTO) 70 % (42-75); PLATELET COUNT 304 x10^3/uL (130-400); RED BLOOD COUNT 3.54 x10^6/uL (3.82-5.3); RED CELL DISTRIBUTION WIDTH 14.7 % (9.6-15.2)
[2020-01-10 10:11] LABS: CHLORIDE 113 mmol/L (98-107)
--- NOTE | 2020-01-10 10:13 | NUR ---
REPORT RECIEVED FROM ROEL BEARDEN. ASSUMED CARE
[2020-01-10] MEDS ORDERED: OMNIPAQUE 350 MG/ML, 100ML BOTTLE ONE (11:35)
== END 2020-01-10 12:42 | disposition home or self-care (01) ==
LOC: ED 09:45
DX: R07.89 Other chest pain (principal); R00.1 Bradycardia, unspecified; R50.9 Fever, unspecified; E11.9 Type 2 diabetes mellitus without complications; I48.91 Unspecified atrial fibrillation; I10 Essential (primary) hypertension; J44.9 Chronic obstructive pulmonary disease, unspecified
CPT/HCPCS: 36415; 71045; 71275; 80053; 83880; 84484; 85025; 85379; 93005; 96374; 99285; J1885; Q9967

== ENCOUNTER 2020-01-21 22:40 | Emergency (ER) | payer MEDICARE, MEDICAID ==
[~2020-01-21] VITALS: Ht 154.9 cm; Wt 87.2 kg
[2020-01-21] MEDS ORDERED: ONDANSETRON 2MG/ML, 2ML IVPush ONE (23:00)
[2020-01-21] MEDS ORDERED: PROMETHAZINE 25 MG/ML, 1ML IM ONE (23:00)
[2020-01-21] MEDS ORDERED: SODIUM CHLORIDE 0.9% 1,000ML IVBOLUS ONE (23:00)
[2020-01-21] MEDS ORDERED: SODIUM CHLORIDE FLUSH 10ML SYR IVF ONE (23:00)
[2020-01-21] MEDS ORDERED: PROMETHAZINE 25 MG/ML, 1ML ONE (23:05)
[2020-01-21] MEDS ORDERED: ONDANSETRON 2MG/ML, 2ML ONE (23:05)
--- NOTE | 2020-01-21 23:15 | NUR ---
PT AMBULATED STEADY TO RESTROOM WITH CANE FOR URINE SAMPLE
[2020-01-21 23:40] LABS: BASOPHILS % (AUTO) 1 % (0-1); EOSINOPHILS % (AUTO) 3 % (1-7); LYMPHOCYTES % (AUTO) 16 % (22-44); MEAN CORPUSCULAR HEMOGLOBIN 28.8 pg (27.0-34.8); MEAN CORPUSCULAR HGB CONC 32.2 g/dL (32.4-35.8); MEAN PLATELET VOLUME 9.2 fL (7.4-10.4); MONOCYTES % (AUTO) 8 % (2-9); NEUTROPHILS % (AUTO) 72 % (42-75); PLATELET COUNT 167 x10^3/uL (130-400); RED BLOOD COUNT 3.57 x10^6/uL (3.82-5.3); RED CELL DISTRIBUTION WIDTH 14.6 % (9.6-15.2)
[2020-01-21 23:44] LABS: MD NO
[2020-01-21 23:53] LABS: ALANINE AMINOTRANSFERASE 28 U/L (12-78); ALBUMIN 3.3 g/dL (3.4-5.0); ANION GAP 6 mmol/L (5-15); CALCIUM 9.8 mg/dL (8.5-10.1); CHLORIDE 105 mmol/L (98-107); CREATININE 1.06 mg/dL (0.55-1.02)
[2020-01-21 23:57] LABS: ALKALINE PHOSPHATASE 78 U/L (45-117); BILIRUBIN,TOTAL 0.1 mg/dL (0.2-1.0); TOTAL PROTEIN 7.1 g/dL (6.4-8.2); TROPONIN I < 0.015 ng/mL (0.000-0.045)
[2020-01-21 23:59] LABS: MICROSCOPIC INDICATED
[2020-01-22] MEDS ORDERED: CEFTRIAXONE PMX 1GM/50ML 50 ML IV ONE (00:30)
[2020-01-22] MEDS ORDERED: CEFTRIAXONE PMX 1GM/50ML 50 ML ONE (00:46)
--- NOTE | 2020-01-22 00:50 | NUR ---
ERP STATES NO BLOOD CULTURE BEFORE ABX ADMIN
[2020-01-22 02:22] VITALS: BP 153/73
--- NOTE | 2020-01-22 02:24 | NUR ---
Patient given discharge instructions and they have confirmed that they understand the instructions. Patient ambulatory with steady gait.
== END 2020-01-22 02:26 | disposition home or self-care (01) ==
LOC: ED 23:07
DX: N30.00 Acute cystitis without hematuria (principal); R51.9 Headache, unspecified; R94.31 Abnormal electrocardiogram [ECG] [EKG]; I10 Essential (primary) hypertension; J44.9 Chronic obstructive pulmonary disease, unspecified; I48.91 Unspecified atrial fibrillation; Z87.891 Personal history of nicotine dependence
CPT/HCPCS: 36415; 80053; 81001; 83690; 84484; 85025; 87086; 93005; 96361; 96365; 96372; 96375; 99284; J0696; J2405; J2550; J7030

== ENCOUNTER 2020-01-25 07:29 | Observation (INO) | payer MEDICARE, MEDICAID ==
[~2020-01-25] VITALS: Ht 154.9 cm; Wt 90.1 kg
[2020-01-25] MEDS: OMEPRAZOLE 20 MG CAPSULE.DR PO SCH (07:30)
--- NOTE | 2020-01-25 07:43 | NUR ---
DR DODD AT BEDSIDE TO EVAL PT
[2020-01-25] MEDS ORDERED: ALBUTEROL/IPRATROPIUM 2.5MG/0.5MG, 3 ML ONE ×2 (08:17→08:49)
[2020-01-25 08:22] LABS: BASOPHILS % (AUTO) 1 % (0-1); EOSINOPHILS % (AUTO) 6 % (1-7); LYMPHOCYTES % (AUTO) 27 % (22-44); MEAN CORPUSCULAR HEMOGLOBIN 29.1 pg (27.0-34.8); MEAN CORPUSCULAR HGB CONC 32.3 g/dL (32.4-35.8); MEAN PLATELET VOLUME 9.2 fL (7.4-10.4); MONOCYTES % (AUTO) 12 % (2-9); NEUTROPHILS % (AUTO) 55 % (42-75); PLATELET COUNT 130 x10^3/uL (130-400); RED BLOOD COUNT 2.97 x10^6/uL (3.82-5.3); RED CELL DISTRIBUTION WIDTH 14.8 % (9.6-15.2)
[2020-01-25] MEDS: ALBUTEROL/IPRATROPIUM 2.5MG/0.5MG, 3 ML NPPB SCH ×2 (08:24→09:02)
--- NOTE | 2020-01-25 08:25 | NUR ---
PT SITTING UP ON GURNEY, DROWSY, AROUSES TO NAME. SR WITH OCC PVC'S NOTED. NO INCREASE WORK OF BREATHING NOTED. DUO NEB RT TX STARTED. AWAITING TEST RESULTS.
[2020-01-25 08:28] LABS: MD NO
[2020-01-25 08:30] LABS: ALBUMIN 2.8 g/dL (3.4-5.0); ANION GAP 7 mmol/L (5-15); CALCIUM 8.8 mg/dL (8.5-10.1); CHLORIDE 110 mmol/L (98-107)
[2020-01-25 08:36] LABS: ALANINE AMINOTRANSFERASE 24 U/L (12-78); ALKALINE PHOSPHATASE 73 U/L (45-117); BILIRUBIN,TOTAL 0.1 mg/dL (0.2-1.0); CREATININE 0.98 mg/dL (0.55-1.02); TOTAL PROTEIN 6.3 g/dL (6.4-8.2); TROPONIN I < 0.015 ng/mL (0.000-0.045)
[2020-01-25] MEDS ORDERED: ENALAPRILAT 1.25 MG/ML, 1ML ONE (08:49)
--- NOTE | 2020-01-25 08:55 | NUR ---
DR DODD AT BEDSIDE TO RE-EVAL PT. PT TO BE ADMITTED INPATIENT
[2020-01-25] MEDS ORDERED: ENALAPRILAT 1.25 MG/ML, 2ML IV ONE (09:00)
--- NOTE | 2020-01-25 09:01 | NUR ---
PT ASSIST TO BSC. SLIGHTLY UNSTEADY ON FEET. PT AWARE OF TO RECEIVE MED FOR BP AND 2ND RT TX.
--- NOTE | 2020-01-25 09:08 | NUR ---
DISCUSSED WITH DR DODD, PT BP DOWN TO 157/57 PRIOR TO VASOTEC ADMIN. HOLD VASOTEC AT THIS TIME AND CONT TO MONITOR BP. DISCUSSED BLOOD CULTURES PRIOR TO ADMIN OF DOXYCYCLINE. DOXYCYCLINE REQUESTED FROM PHARMACY
[2020-01-25] MEDS ORDERED: TRAZODONE 50MG TABLET PO PRN (09:30)
[2020-01-25] MEDS ORDERED: OXYcodone/APAP 10/325MG TABLET PO PRN (09:30)
[2020-01-25] MEDS ORDERED: MELATONIN 5 MG TABLET PO PRN (09:30)
[2020-01-25] MEDS ORDERED: BISACODYL 10 MG SUPP PR PRN (09:30)
[2020-01-25] MEDS ORDERED: POLYETHYLENE GLYCOL 17 GM PACKET PO PRN (09:30)
[2020-01-25] MEDS ORDERED: TEMPLATE NON-FORMULARY MED. (Dulaglutide (Trulicity) 1.5 MG) SC SCH (09:30)
[2020-01-25] MEDS ORDERED: ONDANSETRON ODT 4 MG PO PRN (09:30)
--- NOTE | 2020-01-25 10:03 | NUR ---
REPORT TO CM SEVILLA
[2020-01-25] MEDS: DOXYCYCLINE 100 MG in DEXTROSE 5% 250 ML IV SCH ×2 (10:43→12:16)
--- NOTE | 2020-01-25 12:17 | NUR ---
pt did not want to wait for omeprazole before lunch as she stated she was starving.
--- NOTE | 2020-01-25 13:00 | NUR ---
REPORT GIVEN TO KRISTINE SEVILLA
[2020-01-25 13:26] VITALS: BP 159/70
[2020-01-25] MEDS: GUAIFENESIN ER 600 MG TABLET PO SCH ×2 (13:31→21:41)
[2020-01-25] MEDS ORDERED: ROPINIROLE 1MG TABLET ONE ×3 (17:00→20:19)
[2020-01-25] MEDS: GABAPENTIN 300 MG CAPSULE PO SCH ×2 (17:18→20:12)
[2020-01-25] MEDS: ROPINIROLE 0.5MG TABLET PO SCH ×2 (17:18→20:13)
[2020-01-25 18:20] LABS: % IRON SATURATION 29 % (20-55); IRON LEVEL 67 mcg/dL (50-170); TOTAL IRON BINDING CAPACITY 235 mcg/dL (250-450)
[2020-01-25 19:04] VITALS: BP 136/77
[2020-01-25] MEDS: APIXABAN 5 MG TABLET PO SCH (20:12)
[2020-01-25] MEDS: TOPIRAMATE 100 MG TABLET PO SCH (20:13)
[2020-01-25] MEDS ORDERED: ATORVASTATIN 40 MG TABLET PO SCH (21:00)
[2020-01-25] MEDS ORDERED: INSULIN GLARGINE 100 UNITS/ML, PEN SQ-INSULIN SCH (21:00)
[2020-01-25] MEDS ORDERED: DOXYCYCLINE 100MG TABLET PO SCH (21:00)
[2020-01-26 01:11] VITALS: BP 126/70
[2020-01-26 05:48] LABS: BASOPHILS % (AUTO) 1 % (0-1); EOSINOPHILS % (AUTO) 5 % (1-7); LYMPHOCYTES % (AUTO) 20 % (22-44); MEAN CORPUSCULAR HEMOGLOBIN 29.1 pg (27.0-34.8); MEAN CORPUSCULAR HGB CONC 32.2 g/dL (32.4-35.8); MEAN PLATELET VOLUME 9.2 fL (7.4-10.4); MONOCYTES % (AUTO) 10 % (2-9); NEUTROPHILS % (AUTO) 64 % (42-75); PLATELET COUNT 138 x10^3/uL (130-400); RED BLOOD COUNT 3.02 x10^6/uL (3.82-5.3); RED CELL DISTRIBUTION WIDTH 14.9 % (9.6-15.2)
[2020-01-26 06:02] LABS: CALCIUM 8.5 mg/dL (8.5-10.1); CHLORIDE 112 mmol/L (98-107)
[2020-01-26 06:08] LABS: ALANINE AMINOTRANSFERASE 24 U/L (12-78); ALBUMIN 2.6 g/dL (3.4-5.0); ALKALINE PHOSPHATASE 66 U/L (45-117); ANION GAP 3 mmol/L (5-15); BILIRUBIN,TOTAL 0.3 mg/dL (0.2-1.0); CREATININE 0.89 mg/dL (0.55-1.02); TOTAL PROTEIN 6.1 g/dL (6.4-8.2)
[2020-01-26 06:10] LABS: MD NO
[2020-01-26] MEDS: OMEPRAZOLE 20 MG CAPSULE.DR PO SCH (07:55)
[2020-01-26 08:00] VITALS: BP 136/71
[2020-01-26] MEDS: APIXABAN 5 MG TABLET PO SCH (08:52)
[2020-01-26] MEDS: GABAPENTIN 300 MG CAPSULE PO SCH (08:52)
[2020-01-26] MEDS: ROPINIROLE 0.5MG TABLET PO SCH (08:52)
[2020-01-26] MEDS: TOPIRAMATE 100 MG TABLET PO SCH (08:52)
[2020-01-26] MEDS: GUAIFENESIN ER 600 MG TABLET PO SCH (08:52)
[2020-01-26] MEDS ORDERED: SENNA/DOCUSATE TABLET PO SCH (09:00)
[2020-01-26] MEDS ORDERED: METFORMIN HCL PO SCH (09:00)
[2020-01-26] MEDS ORDERED: METFORMIN HCL HOMEMEDPO SCH (09:00)
[2020-01-26] MEDS ORDERED: DAPAGLIFLOZIN PO SCH (09:00)
[2020-01-26] MEDS ORDERED: CITALOPRAM 20 MG TABLET PO SCH (09:00)
[2020-01-26] MEDS ORDERED: DAPAGLIFLOZIN HOMEMEDPO SCH (09:00)
[2020-01-26] MEDS ORDERED: MAGNESIUM SULFATE PMX 2GM/50ML 50 ML IV ONE (10:00)
[2020-01-26] MEDS ORDERED: FERROUS SULFATE 325 MG TABLET PO SCH (12:00)
== END 2020-01-26 13:10 | disposition home or self-care (01) ==
LOC: ED 07:51 → SUATTDRO 08:56 → INTOOBSV 09:58 → EDIP 09:58 → 4NW 13:15 → DCLOUNGE 01-26 13:00
PROVIDERS: ADMIT Internal Medicine; ATTEND Hospitalist
DX: J96.20 Acute and chronic respiratory failure, unspecified whether with hypoxia or hypercapnia (principal); D64.9 Anemia, unspecified; E11.9 Type 2 diabetes mellitus without complications; G89.29 Other chronic pain; E66.01 Morbid (severe) obesity due to excess calories; I48.0 Paroxysmal atrial fibrillation; I10 Essential (primary) hypertension; J44.9 Chronic obstructive pulmonary disease, unspecified; J18.9 Pneumonia, unspecified organism; R91.1 Solitary pulmonary nodule; I48.20 Chronic atrial fibrillation, unspecified; N39.0 Urinary tract infection, site not specified; F20.9 Schizophrenia, unspecified; F11.20 Opioid dependence, uncomplicated; Z79.01 Long term (current) use of anticoagulants; Z87.891 Personal history of nicotine dependence; Z79.4 Long term (current) use of insulin; Z79.899 Other long term (current) drug therapy; Z86.73 Personal history of transient ischemic attack (TIA), and cerebral infarction without residual deficits; Z99.81 Dependence on supplemental oxygen
CPT/HCPCS: 36415; 71045; 71250; 80053; 82962; 83540; 83550; 83605; 83735; 83880; 84100; 84145; 84484; 85018; 85025; 87040; 93005; 96365; 96366; 96367; 96375; 99285; G0378; J3475; J7060

== ENCOUNTER 2020-02-04 00:35 | Emergency (ER) | payer MEDICARE, MEDICAID ==
[~2020-02-04] VITALS: Ht 175.3 cm; Wt 91.0 kg
[2020-02-04] MEDS ORDERED: LORazepam 1MG TABLET ONE (00:58)
[2020-02-04] MEDS ORDERED: LORazepam 0.5MG TABLET PO ONE (01:00)
[2020-02-04 01:09] LABS: BASOPHILS % (AUTO) 1 % (0-1); EOSINOPHILS % (AUTO) 3 % (1-7); LYMPHOCYTES % (AUTO) 11 % (22-44); MEAN CORPUSCULAR HEMOGLOBIN 29.7 pg (27.0-34.8); MEAN CORPUSCULAR HGB CONC 32.4 g/dL (32.4-35.8); MEAN PLATELET VOLUME 8.5 fL (7.4-10.4); MONOCYTES % (AUTO) 8 % (2-9); NEUTROPHILS % (AUTO) 77 % (42-75); PLATELET COUNT 220 x10^3/uL (130-400); RED BLOOD COUNT 2.88 x10^6/uL (3.82-5.3); RED CELL DISTRIBUTION WIDTH 15.9 % (9.6-15.2)
[2020-02-04 01:10] LABS: MD NO
[2020-02-04 01:14] LABS: ALBUMIN 2.8 g/dL (3.4-5.0); ANION GAP 4 mmol/L (5-15); CALCIUM 9.3 mg/dL (8.5-10.1); CHLORIDE 116 mmol/L (98-107); CREATININE 0.95 mg/dL (0.55-1.02)
[2020-02-04 01:18] LABS: TROPONIN I < 0.015 ng/mL (0.000-0.045)
[2020-02-04 02:02] VITALS: BP 135/62
--- NOTE | 2020-02-04 02:06 | NUR ---
JUANA HITCHCOCK [phone] CONTACT WITH PLAN OF CARE
[2020-02-04] MEDS ORDERED: DOXYCYCLINE 100MG TABLET ONE (02:09)
[2020-02-04] MEDS ORDERED: DOXYCYCLINE 100MG TABLET PO ONE (02:30)
== END 2020-02-04 02:54 | disposition home or self-care (01) ==
LOC: ED 01:54
DX: J18.9 Pneumonia, unspecified organism (principal); Z20.828 Contact with and (suspected) exposure to other viral communicable diseases; F41.9 Anxiety disorder, unspecified; R91.1 Solitary pulmonary nodule; I10 Essential (primary) hypertension; E11.9 Type 2 diabetes mellitus without complications; I48.91 Unspecified atrial fibrillation; J44.9 Chronic obstructive pulmonary disease, unspecified; Z87.891 Personal history of nicotine dependence
CPT/HCPCS: 36415; 71045; 80048; 82040; 83880; 84484; 85025; 87635; 93005; 99285